=== PATIENT | female | born 1980 | race Caucasian/White ===

== ENCOUNTER → 2024-03-12 08:12 | Outpatient (REF) | payer BC, SELFPAY | LOC: RAD 08:12 | PROVIDERS: ATTENDING PHYSICIAN Internal Medicine Rheumatology | DX: M25.571 Pain in right ankle and joints of right foot (principal); M25.572 Pain in left ankle and joints of left foot; M13.0 Polyarthritis, unspecified | CPT/HCPCS: 76882 ==

== ENCOUNTER 2024-07-07 06:24 | Day surgery (SDC) | payer BC, SELFPAY | END 2024-07-07 16:08 | disposition home or self-care (01) | LOC: GI 06:24 | PROVIDERS: ATTENDING PHYSICIAN Internal Medicine Gastroenterology | DX: Z12.11 Encounter for screening for malignant neoplasm of colon (principal); K64.0 First degree hemorrhoids; D12.3 Benign neoplasm of transverse colon | CPT/HCPCS: 45380; 88305 ==